=== PATIENT | male | born 1940 | race Caucasian/White ===

== ENCOUNTER 2017-08-04 08:10 | Day surgery (SDC) | payer MEDICARE, OTHER ==
[2017-08-04] MEDS ORDERED: Lactated Ringer's 500 ML IV ONE (09:13)
[2017-08-04] MEDS ORDERED: Midazolam 2 MG/2 ML VIAL ONE (10:27)
[2017-08-04] MEDS ORDERED: Propofol 10 mg/ml Inj (20 ML) ONE (10:27)
[2017-08-04 10:56] VITALS: O2SAT 100
[2017-08-04 11:10] VITALS: BP 127/66; PULSE 62; RESP 12; TEMP 96.8
== END 2017-08-04 11:27 | disposition home or self-care (01) ==
LOC: H.ENDO 08:10 → EDSTATUS 11:00 → H.ENDO 11:27
PROVIDERS: ATTEND Internal Medicine Gastroenterology
DX: Z12.11 Encounter for screening for malignant neoplasm of colon (principal); K64.8 Other hemorrhoids; K57.30 Diverticulosis of large intestine without perforation or abscess without bleeding
CPT/HCPCS: 45378; J2250; J2704; J7120